=== PATIENT | female | born 1980 | race Two or more races ===

== ENCOUNTER 2024-07-08 17:14 | Emergency (ER) | payer MEDICAID, SELFPAY ==
[2024-07-08 17:33] VITALS: BP 119/78; PULSE 87; RESP 17; TEMP 37.1; O2SAT 99; BMI 31.9
--- NOTE | 2024-07-08 17:41 | PD.EDRME ---
Rapid Medical Screening Exam E Arrival date/time: 07/08/24 17:14 44-year-old female with no known medical history presents to the emergency room with a chief complaint of numbness and tingling to the bilateral lower extremities x 1 week. Patient denies any trauma or injury to the area. I have greeted and performed a focused initial assessment of this patient. A comprehensive ED assessment and evaluation of the patient, analysis of all test results, and completion of the medical decision making process will be conducted by additional ED providers. Chief Complaint: Extremity Problem,Nontraumatic Time Seen by Provider: 07/08/24 17:38 Vital signs: Vital Signs Temperature 98.7 F 07/08/24 17:33 Pulse Rate 87 07/08/24 17:33 Respiratory Rate 17 07/08/24 17:33 Blood Pressure 119/78 07/08/24 17:33 Pulse Oximetry (%) 99 07/08/24 17:33 Oxygen Delivery Method Room Air 07/08/24 17:33 Vital signs reviewed by provider: Yes
--- NOTE | 2024-07-08 19:25 | PC.NURSE ---
N/A FROM [facility] FOR LAB DRAW X2
--- NOTE | 2024-07-08 20:31 | PC.NURSE ---
N/A FROM [facility]
== END 2024-07-08 20:32 | disposition left against medical advice (07) ==
LOC: SERX 17:45
PROVIDERS: Emergency Provider Emergency Medicine; PCP Physician Assistant; Referring Provider Emergency Medicine
DX: R20.0 Anesthesia of skin (principal); Z53.29 Procedure and treatment not carried out because of patient's decision for other reasons
CPT/HCPCS: 81025; 85025; 99281

== ENCOUNTER 2025-02-26 22:31 | Emergency (ER) | payer MEDICAID, SELFPAY ==
--- NOTE | 2025-02-26 22:54 | EDNOTE_ITS ---
ED Abdominal Pain RME/HPI General Chief Complaint: Abdominal Pain Stated complaint: UPPER ABD PAIN Time seen by provider: 02/26/25 23:02 Arrival date/time: 02/26/25 22:31 RME / HPI RME / HPI narrative: See [facility] for Dr. Parkinson's HPI documentation. Related Data Previous Rx's ?Medication ?Instructions ?Recorded ketoconazole 1 % shampoo 1 applic topical Q3D #200 mL 04/04/23 ketoconazole 2 % topical cream 1 applic topical BID #6 0 grams 04/04/23 acetaminophen 300 mg-codeine 30 mg 2 tab PO Q8H PRN pa in #20 tabs 02/26/25 tablet amoxicillin 875 mg-potassium 1 tab PO BID 5 days #10 t abs 02/26/25 clavulanate 125 mg tablet ondansetron 4 mg disintegrating 4 mg PO TID PRN nausea and 02/26/25 tablet vomiting 30 days #10 tabs Allergies Allergy/AdvReac Type Severity Reaction Status Date / Time No Known Allergies Allergy Verified 02/26/25 22:35 Review of Systems Review of Systems Systems Reviewed: All systems reviewed, normal except as documented Past Medical History Past Medical History NEUROLOGIC: Negative Cerebrovascular Accident or Alzheimer's Disease CARDIAC: Negative Myocardial Infarction or Angina RESPIRATORY: Negative Chronic Obstructive Pulmonary Disease (COPD) or Emphysema GASTROINTESTINAL: Negative Liver Cancer or Pancreatic Cancer REPRODUCTIVE: Positive Previous Pregnancies MUSCULOSKELETAL: Negative Muscular Dystrophy or Bone Cancer ENT: Negative Cataracts ENDOCRINE: Negative Endocrine Disorders, Diabetes Mellitus Type 1 or Diabetes Mellitus Type 2 PSYCHO/SOCIAL: Negative Psychiatric Problems OTHER HISTORY: Negative Down Syndrome or Developmental Delay Social History SMOKING STATUS: Never smoker ED Exam Narrative Physical exam: See [facility] for Dr. Parkinson's physical exam documentation. Course Quality Measures none Orders Category Date Time Status Bedside COVID-19 Antigen Test NOW Care 02/26/25 22:58 Completed Bedside Influenza A&B Antigen Test NOW Care 02/26/25 22:58 Completed Saline [Insert IV] NOW Care 02/26/25 22:59 Completed US gall bladder Stat Exams 02/26/25 22:59 Completed Alcohol, Blood Medical Stat Lab 02/26/25 23:12 Completed Amylase Stat Lab 02/26/25 23:12 Completed Bilirubin,Direct Stat Lab 02/26/25 23:12 Completed CBC Stat Lab 02/26/25 23:12 Completed CMP [Comprehensive Metabolic Panel] Stat Lab 02/26/25 23:12 Completed Drug Screen,Urine Stat Lab 02/26/25 23:21 Completed HCG,Qualitative Serum Stat Lab 02/26/25 23:12 Completed Magnesium Stat Lab 02/26/25 23:12 Completed UA, C/S IF [Urinalysis, C/S if Indicated] Stat Lab 02/26/25 23:21 Completed HYDROmorphone INJ [Dilaudid Inj] Med 02/26/25 22:59 Discontinued 1 mg IVP X1 ONE Ketorolac Inj [Toradol Inj] Med 02/26/25 22:59 Discontinued 30 mg IVP X1 ONE Ondansetron Inj [Zofran Inj] Med 02/26/25 22:59 Discontinued 4 mg IVP X1 ONE Piper/Tazo 3.375 gm Premix [Zosyn] Med 02/26/25 23:50 Discontinued 3.375 gm in 50 ml IV X1 Sodium Chloride 0.9% 1000 ml [Ns] 1,000 ml Med 02/26/25 22:59 Discontinued IV 999 mls/hr Vital Signs Vital signs: Vital Signs Temperature 98.1 F 02/26/25 22:59 Pulse Rate 71 02/26/25 22:59 Respiratory Rate 18 02/26/25 22:59 Blood Pressure 101/67 02/26/25 22:59 Pulse Oximetry (%) 100 02/26/25 22:59 Oxygen Delivery Method Room Air 02/26/25 22:59 Abdominal Pain MDM MDM Narrative MDM Narrative:: This section includes all my notes and documentations, including HPI, PE, and ED course. Guilherme Parkinson MD HPI: 45yo female here with with severe upper abdominal pain and vomiting for the last 12 hours. Patient is on Ozempic. No fever or chills. No other complaints reported. ROS: All negative except as documented in HPI. Physical Exam: General: Alert and oriented. In severe pain. Eyes: Conjunctivae and lids clear. ENT: No nasal congestion. Neck: Supple. Heart: RRR. Lungs: No respiratory distress. Good air movement. No rhonchi, wheezing, rales. Abdomen: Soft and severe epigastric and RUQ tenderness. Normal bowel sounds. No distension. No rebound or guarding. Skin: Warm and dry. Neuro: Alert and oriented X 3. I reviewed all diagnostic test results. My review of the gallbladder US report is cholelithiasis. Blood tests remarkable for WBC 13.3. UDS positive for methamphetamine. At this point, diagnoses include: Gallstones Treatment here included: Toradol 30 mg IV Zofran 4 mg IV Dilaudid 1 mg IV IV fluid Zosyn 3.375 g IV She felt much better. Recommended outpatient management. Based on my best medical judgment, made decision no further evaluation or tr eatment indicated at this time. Patient understands and agrees to the discharge instructions customized and printed, see below. Discharge Instructions from Dr. Parkinson: 1. After evaluation, your symptoms are due to gallstone(s). You need gallbladder to help digest fatty foods. 2. So to prevent future attacks, avoid all fatty and oily and greasy and buttery and dairy foods. This usually means take out and fast food restaurants. 3. Zofran for nausea/vomiting. Tylenol with codeine for severe pain. Clear liquid diet for 24 hours then advance diet slowly as tolerated. Take Augmentin for the infection. 4. See a private doctor on 02/27/2025 for recheck and further care. Ask to review all test results and official radiology reports, to make sure you receive all necessary follow-ups and monitoring. Ask for help seeing a general surgeon to discuss elective surgery, to prevent future painful attacks. 5. Seek immediate medical care with intolerable pain, fever, or with any concerns. Guilherme Parkinson MD Patient data External records reviewed:: [facility] previous records (Per chart review, patient was seen here on 07/05/23 for atypical chest pain.) Clinical information provided by:: patient Social determinants that could affect healthcare access:: none Patient has the following chronic illnesses:: none How is presenting disease/condition affected by chronic disease/condition?: no chronic disease Evaluation data The following diagnostics were reviewed and interpreted by me:: lab results and radiology exam(s) Lab and/or radiology exams considered but not ordered:: none Interpretation Summary: I reviewed all diagnostic test results. My review of the gallbladder US report is cholelithiasis. Blood tests remarkable for WBC 13.3. UDS positive for methamphetamine. Medications / Prescriptions Medications or Prescriptions considered but not ordered:: none Medication administrations:: Medication Administration History Discontinued Medications Hydromorphone HCl (Hydromorphone Inj 2 Mg/Ml Vial) 1 mg IVP X1 ONE Stop: 02/26/25 23:00 Last Admin: 02/26/25 23:19 Dose: 1 mg Documented By: EV Sodium Chloride (Ns) 1,000 mls @ 999 mls/hr IV .Q1H1M ONE Stop: 02/26/25 23:59 Last Infusion: 02/27/25 00:49 Dose: Infused Documented By: Admin: 02/26/25 23:18 Dose: 999 mls/hr Documented By: EV Piperacillin/Tazobactam/Dextrose (Zosyn) 3.375 gm in 50 mls @ 100 mls/hr IV X1 ONE; Protocol Stop: 02/27/25 00:19 Last Infusion: 02/27/25 00:48 Dose: Infused Documented By: Admin: 02/27/25 00:16 Dose: 100 mls/hr Documented By: EV Ketorolac Tromethamine (Ketorolac Inj 30 Mg/Ml Vial) 30 mg IVP X1 ONE Stop: 02/26/25 23:00 Last Admin: 02/26/25 23:19 Dose: 30 mg Documented By: EV Ondansetron HCl (Ondansetron Inj 2 Mg/Ml Inj 2 Ml) 4 mg IVP X1 ONE; Protocol Stop: 02/26/25 23:00 Last Admin: 02/26/25 23:18 Dose: 4 mg Documented By: EV Treatment here included: Toradol 30 mg IV Zofran 4 mg IV Dilaudid 1 mg IV IV fluid Zosyn 3.375 g IV Consultations Consultation(s) initiated? (list below): No Diagnosis Differential diagnosis abdominal pain: acute appendicitis, calculus of kidney, constipation, diverticulitis, endometriosis, gastroenteritis, pancreatitis, small bowel obstruction and other (Biliary colic, GERD, PUD, gastritis) Most likely diagnosis given after review of the tests above:: Gallstones Admission Indicated Admission indicated?: not indicated Explain why admission is indicated or not indicated:: With significant improvement and no condition needing emergent intervention, there was no indication for admission. Admission Request Was there a request for admission?: No Disposition Plan Disposition Plan: Discharge Discharge Attestation Discharge Attestation: The patient and all family members were given an opportunity to ask questions and understood the discharge instructions. Discharge instructions specifically effects, indications for sooner follow up or return to the emergency department, and the expected course of current diagnosis. Patient condition: Stable Discharge Plan Plan Patient Disposition: HOME (Self Care) Prescriptions/Referrals Prescriptions/Med Rec: New acetaminophen-codeine 300-30 mg tablet 2 tab PO Q8H MDD 6 PRN (Reason: pain) Qty: 20 0RF ondansetron 4 mg tablet,disintegrating 4 mg PO TID PRN (Reason: nausea and vomiting) 30 Days Qty: 10 0RF amoxicillin-pot clavulanate 875-125 mg tablet 1 tab PO BID 5 Days Qty: 10 0RF No Action ketoconazole 2 % cream 1 applic topical BID Qty: 60 0RF Rx Instructions: apply for 4 weeks ketoconazole 1 % shampoo 1 applic topical Q3D Qty: 200 0RF Referrals: No Primary/Family,Physician [Referring Provider] - In 1 week Problem List Clinical Impression: Gallstones Patient/Caregiver Discharge Instructions Discharge Activity: activity as tolerated Education Materials: ED Gallstones with Biliary Colic Additional Instructions: Discharge Instructions from Dr. Parkinson: 1. After evaluation, your symptoms are due to gallstone(s).? You need gallbladder to help digest fatty foods. 2. So to prevent future attacks, avoid all fatty and oily and greasy and buttery and dairy foods.? This usually means take out and fast food restaurants. 3. Zofran for nausea/vomiting.? Tylenol with codeine for severe pain.? Clear liquid diet for 24 hours then advance diet slowly as tolerated. Take Augmentin for the infection. 4. See a private doctor on 02/27/2025 for recheck and further care. Ask to review all test results and official radiology reports, to make sure you receive all necessary follow-ups and monitoring. Ask for help seeing a general surgeon to discuss elective surgery, to prevent future painful attacks. 5. Seek immediate medical care with intolerable pain, fever, or with any concerns. Instrucciones de diana del Dr. Parkinson: 1. Despu?s de la evaluaci?n, [place] s?ntomas se deben a c?lculos biliares. Necesita la ves?cula biliar para digerir los alimentos grasos. 2. Para prevenir futuros ataques, evite todos los alimentos grasosos, aceitosos, grasosos, con mantequilla y l?cteos. [place] generalmente implica comida para llevar y restaurantes de comida r?pida. 3. Zofran para las n?useas y los v?mitos. Tylenol con code?na para el dolor intenso. Dieta l?quida liana 24 horas y luego aumente la dieta gradualmente seg?n la tolerancia. [place] Augmentin para la infecci?n. 4. Consulte con un m?dico privado el 27/02/2025 para fauzia nueva revisi?n y recibir atenci?n adicional. Solicite la revisi?n de todos los resultados de las pruebas y los informes radiol?gicos oficiales para asegurarse de recibir todos los seguimientos y la monitorizaci?n necesarios. [place] ayuda con un cirujano general para hablar sobre fauzia cirug?a electiva y prevenir futuros ataques dolorosos. 5. Busque atenci?n m?dica inmediata si presenta dolor insoportable, fiebre o cu alquier inquietud. Print Language: Y[place] Stand Alone Forms: Jinny Award Info., Patient Portal Info Letter
[2025-02-26 22:59] VITALS: BP 101/67; PULSE 71; RESP 18; TEMP 36.7; O2SAT 100
--- NOTE | 2025-02-26 22:59 | XR_ITS ---
Examination: Abdomen sonogram, Limited Date and time of exam: February 26, 2025, 11:16 PM Indications: Epigastric pain and nausea beginning today Technique: Real-time cabrales scale transabdominal sonographic images of the upper abdomen obtained. Findings: Multiple gallstones Gallbladder wall 0.3 cm no edema Common bile duct 0.5 cm Pancreatic head 2.0 cm Liver 16.5 cm no liver lesions Liver contour is lobular Normal hepatopedal portal venous flow Patent IVC Impression: Cholelithiasis, negative for cholecystitis Suspicious for primary hepatocellular disease
[2025-02-26] MEDS: ONDANSETRON INJ 2 MG/ML INJ 2 ML 4 MG IVP (23:18)
[2025-02-26] MEDS: SODIUM CHLORIDE 0.9% 1000 ML 1,000 ML 999 ML IV (23:18)
[2025-02-26] MEDS: HYDROmorphone INJ 2 MG/ML VIAL 1 MG IVP (23:19)
[2025-02-26] MEDS: KETOROLAC INJ 30 MG/ML VIAL IVP (23:19)
[2025-02-26 23:23] LABS: Basophils # (Auto) 0.1 Thou/mm3 (0.0-0.2); Basophils % (Auto) 1 % (0-2.5); Eosinophils # (Auto) 0.1 Thou/mm3 (0.0-0.5); Eosinophils % (Auto) 1 % (0-10); Hematocrit 38.4 % (36.0-46.0); Hemoglobin 13.0 g/dL (12.0-16.0); Immature Granulocytes Auto 0.04 Thou/mm3 (0.00-0.00); Lymphocytes # (Auto) 3.1 Thou/mm3 (1.0-4.8); Lymphocytes % (Auto) 23 % (10-50); Mean Corpuscular HGB Conc 33.9 g/dl (31.0-37.0); Mean Corpuscular Hemoglobin 33.2 pg (25.0-35.0); Mean Corpuscular Volume 98 fL (80-100); Monocytes # (Auto) 1.0 Thou/mm3 (0.0-0.8); Monocytes % (Auto) 8 % (0-12); Neutrophils # (Auto) 9.0 Thou/mm3 (1.8-7.7); Neutrophils % (Auto) 68 % (37-80); Nucleated Red Blood Cell # 0.00 Thou/mm3 (0.00-0.00); Nucleated Red Blood Cell % 0 /100 WBC (0); Platelet Count 304 Thou/mm3 (140-440); RDW Standard Deviation 45.9 fL (36.4-46.3); Red Blood Count 3.91 Miln/mm3 (4.00-5.20); White Blood Count 13.3 Thou/mm3 (3.6-11.0)
[2025-02-26 23:30] LABS: Collection Type, Urine Clean Catch; RBC,Urine 0 /hpf (0-3)
[2025-02-26 23:42] LABS: HCG,Qualitative Serum Negative
[2025-02-26 23:45] LABS: Alanine Aminotransferase 27 U/L (10-49); Albumin, Serum 3.8 gm/dL (3.5-5.0); Albumin/Globulin Ratio 1.5 (1.2-2.2); Alcohol, Blood Medical < 3.0 mg/dL (0-10.0); Alkaline Phosphatase 52 U/L (46-116); Amylase 60 U/L (30-118); Anion Gap 7 (7-16); Aspartate Amino Transferase 46 U/L (0-34); BUN/Creatinine Ratio 13 Ratio (12-20); Bilirubin,Direct 0.3 mg/dL (0.0-0.3); Bilirubin,Total 0.6 mg/dL (0.3-1.2); Blood Urea Nitrogen 10 mg/dL (9-23); Calcium 9.1 mg/dL (8.3-10.6); Calcium (Corrected) 9.3 mg/dL (8.5-10.1); Carbon Dioxide 29.3 mMol/L (20.0-31.0); Chloride 108 mMol/L (98-107); Creatinine (Component) 0.8 mg/dL (0.6-1.3); Globulin 2.6 gm/dL (2.3-3.5); Glucose 134 mg/dL (74-106); Magnesium 1.7 mg/dL (1.6-2.6); Osmolality,Calculated 287 (275-295); Potassium 3.6 mMol/L (3.4-5.1); Sodium 144 mMol/L (136-145); Total Protein 6.4 gm/dL (5.7-8.2); eGFR > 60 See Note
[2025-02-26 23:56] LABS: Amorphous Crystals,Urine Present (Absent); Bacteria,Urine Rare; Bilirubin,Urine 1+ (Negative); Blood,Urine Negative (Negative); Clarity,Urine Turbid (Clear/Hazy); Color,Urine Drk-Yellow (Lt Yel-Yel); Culture Indicated,Urine Contaminated; Glucose, Urine Negative (Negative); Hyaline Casts,Urine 1 /hpf (0-1); Ketones,Urine Trace (Negative); Leukocyte Esterase,Urine Positive (Negative); Nitrite,Urine Negative (Negative); PH,Urine 6.5 (5.0-7.0); Protein,Urine 3+ (Neg - Trace); Specific Gravity,Urine 1.036 (1.001-1.035); Squamous Epithelial Cell,Urine 41 /hpf (0-5); Urobilinogen,Urine 4.0 mg/dL (0.0-1.0); WBC,Urine 13 /hpf (0-5)
[2025-02-26 23:57] LABS: Amphetamine/Methamp Scrn,U Positive (Negative); Barbiturate Screen,Urine Negative (Negative); Benzodiazepines Screen,Urine Negative (Negative); Benzoylecgonine Screen, Ur Negative (Negative); Fentanyl Screen,Urine Negative (Negative); Opiate Screen,Urine Negative (Negative); THC Screen,Urine Negative (Negative)
[2025-02-27] MEDS: PIPER/TAZO 3.375 GM PREMIX 3.375 GM/50 ML BAG IV (00:16)
[2025-02-27 00:49] VITALS: BP 136/94; PULSE 91; RESP 15; O2SAT 100
== END 2025-02-27 00:54 | disposition home or self-care (01) ==
PROVIDERS: Emergency Provider Emergency Medicine; PCP Family Medicine
DX: K80.20 Calculus of gallbladder without cholecystitis without obstruction (principal)
CPT/HCPCS: 36415; 76705; 80053; 80307; 80320; 81001; 82150; 82248; 83735; 84703; 85025; 87400; 87811; 96361; 96365; 96375; 99284; J1171; J1885; J2405; J2543; J7030; G0480

== ENCOUNTER → 2025-03-16 | Outpatient (CLI) | payer MEDICAID, SELFPAY ==
--- NOTE | 2025-03-16 09:45 | XR_ITS ---
Examination: Screening digital mammography, bilateral Computer aided detection 3-D breast Tomosynthesis, bilateral Date and time of exam: March 16, 2025, 10:34 a.m., compared to mammograms dating to May 10, 2022 Indication: Screening Technique: Nonmagnified MLO, CC views of the breasts to been obtained, reconstructed from 3-D Tomosynthesis images. R2 computer aided detection program utilized for evaluation of suspicious masses and/or abnormal calcifications. 3-D Tomosynthesis images obtained. Findings: The breasts are heterogeneously dense, which may obscure small masses Benign calcifications. No interval suspicious masses Impression: BI-RADS category II: Benign Findings. Recommend 1 year follow-up mammogram.
== END | disposition home or self-care (01) ==
LOC: CDIM 09:58
PROVIDERS: Referring Provider Obstetrics & Gynecology; Visit Provider Obstetrics & Gynecology
DX: Z12.31 Encounter for screening mammogram for malignant neoplasm of breast (principal); R92.323 Mammographic fibroglandular density, bilateral breasts
CPT/HCPCS: 77063; 77067

== ENCOUNTER 2025-05-08 21:13 | Emergency (ER) | payer MEDICAID, SELFPAY ==
--- NOTE | 2025-05-08 22:14 | PC.NURSE ---
CALLED X 3 TO BE SEEN BY PROVIDER.
== END 2025-05-08 22:14 | disposition left against medical advice (07) ==
PROVIDERS: Emergency Provider Emergency Medicine
DX: Z53.21 Procedure and treatment not carried out due to patient leaving prior to being seen by health care provider (principal)
CPT/HCPCS: 99281